=== PATIENT | male | born 1950 ===

== ENCOUNTER 2019-08-10 11:34 | Emergency (ER) | payer OTHER ==
[~2019-08-10] VITALS: Ht 177.8 cm; Wt 108.9 kg
[~2019-08-10 11:34] MED LIST: DALMANE30 MG; DEPAKOTE ER500 MG; GEMFIBROZIL600 MG; GLIPIZIDE10 MG; INDOMETHACIN75 MG; LEVAQUIN750 MG; LISINOPRIL-HCTZ1 TA7; METFORMIN HCL500 M2; NABUMETONE500 MG PO; NEURONTIN300 MG; OMEPRAZOLE20 MG; PERCOCET 5/3251 TAB PO; RISPERDAL1 MG; SYNTHROID200 MCG
[2019-08-10] MEDS ORDERED: CLONAZEPAM2 M1 (12:11)
[2019-08-10] MEDS ORDERED: OMEGA-31000 MG (12:15)
[2019-08-10] MEDS ORDERED: TAMS0.4C (12:15)
[2019-08-10] MEDS ORDERED: CYMBALTA20 MG (12:16)
[2019-08-10] MEDS ORDERED: VITAMIN D1000 UNIT (12:16)
== END 2019-08-10 17:14 | disposition home or self-care (01) ==
LOC: ER 11:34
DX: K58.8 Other irritable bowel syndrome (principal); R10.11 Right upper quadrant pain